=== PATIENT | female | born 1960 | race Caucasian/White ===

== ENCOUNTER 2023-12-05 08:47 | Emergency (ER) | payer OTHER ==
[~2023-12-05] VITALS: Ht 167.6 cm; Wt 73.0 kg
[~2023-12-05 08:47] MED LIST: KEFLEX500 MG PO; LISINOPRIL10 MG PO; NORCO 10-325 T1 EACH PO; NORCO 5-325 TA1 EACH PO; ZOLPIDEM TART12.5 MG PO
[2023-12-05 09:49] LABS: BASOPHILS 0.6 % (0-2); EOSINOPHILS 0.3 % (0-6); HEMATOCRIT 43.1 % (35.0-50.0); HEMOGLOBIN 14.6 g/dL (12.0-18.0); LYMPHOCYTES 17.2 % (24-44); MCH 30.9 (27-36); MCHC 33.8 g/dl (30-36); MCV 91.3 fl (81-99); MONOCYTES 5.4 % (0-12); NEUTROPHILS 76.5 % (39-80); PLATELET COUNT 275 K/uL (140-440); RBC 4.72 M/ul (4.3-5.7); RDW 13.2 (10.5-15.0)
[2023-12-05 10:04] LABS: ALBUMIN 3.8 g/dL (3.4-5.0); ALBUMIN/GLOBULIN RATIO 1.06 (1.1-2.4); ANION GAP 14.4 (7-21); BILIRUBIN, TOTAL 0.5 ng/dL (0.2-1.0); BUN/CREATININE RATIO 15.78 (6.0-28.6); CALCIUM 9.5 mg/dL (8.5-10.1); CREATININE, SERUM 0.76 mg/dL (0.55-1.02); POTASSIUM 3.4 mmol/L (3.5-5.1); PROTEIN, TOTAL 7.4 g/dL (6.4-8.2)
[2023-12-05 10:35] LABS: INR 1.03 (0.80-1.30); PARTIAL THROMBOPLASTIN TIME 27.8 Sec (22.9-41.3); PROTIME 12.8 Sec (11.2-14.2)
[2023-12-05 10:59] LABS: INFLUENZA B NAA NEGATIVE (NEGATIVE); RESPIRATORY SYNCYTIAL VIR NAA NEGATIVE (NEGATIVE)
--- NOTE | 2023-12-06 11:56 | EKG ---
[facility] [address] [facility] [place] [facility] [place], [place] [address] Signed Sinus tachycardia Cannot rule out Anterior infarct , age undetermined Abnormal ECG No previous ECGs available Confirmed by Kleber De La O MD ([id number]) on 12/06/2023 11:56:09 AM Electronically Signed By: KLEBER DE LA O 12/06/23 1156 PATIENT NAME: GANGA CARBALLO Electrocardiogram DATE OF : 60 PHYSICIAN: KLEBER DE LA O REPORT #: [id number] REPORT IS CONFIDENTIAL AND NOT TO BE RELEASED WITHOUT AUTHORIZATION
== END 2023-12-05 13:35 | disposition home or self-care (01) ==
LOC: ED 08:47
PROVIDERS: Emergency Medicine
DX: G45.4 Transient global amnesia (principal); I10 Essential (primary) hypertension; Z79.899 Other long term (current) drug therapy
CPT/HCPCS: 36415; 70450; 70496; 70498; 70551; 71045; 80053; 85025; 85610; 85730; 87502; 93005; 93010; 99285-25; Q9967; U0002

== ENCOUNTER 2025-06-14 08:17 | Emergency (ER) | payer OTHER ==
[~2025-06-14] VITALS: Ht 167.6 cm; Wt 65.0 kg
[2025-06-14] MEDS ORDERED: NITROGLYCERIN 0.4 MG SUBL SL PRN (08:30)
[2025-06-14] MEDS ORDERED: ASPIRIN 81 MG CHEW PO ONE (08:30)
[2025-06-14 08:34] LABS: BASOPHILS 0.7 % (0.1-1.2); EOSINOPHILS 0.7 % (0.7-5.8); LYMPHOCYTES 36.7 % (19.3-51.7); MCH 30.9 PG (25.6-32.2); MCHC 33.3 g/dL (32.2-35.5); MCV 92.7 fL (79.4-94.8); MONOCYTES 9.4 % (4.7-12.5); NEUTROPHILS 52.4 % (34.0-71.1); RBC 4.92 M/uL (3.93-5.22)
[2025-06-14 08:52] LABS: ALT (SGPT) 22 U/L (14-59); AST (SGOT) 16 U/L (15-37); GLOMERULAR FILTRATION RATE,EST 102 mL/min (>60); PROTEIN, TOTAL 8.0 g/dL (6.4-8.2); UREA NITROGEN 11 mg/dL (7-18)
[2025-06-14 11:31] VITALS: BP 125/78
--- NOTE | 2025-06-15 15:13 | EKG ---
[facility] [address] [facility] [place] [address] Signed Sinus rhythm with occasional premature ventricular complexes Cannot rule out Anterior infarct (cited on or before 05-DEC-2023) Abnormal ECG When compared with ECG of 05-DEC-2023 09:47, premature ventricular complexes are now present Questionable change in QRS axis Confirmed by Enrique Whiteside MD ([id number]) on 06/15/2025 3:13:01 PM Electronically Signed By: ENRIQUE WHITESIDE MD 06/15/25 1513 PATIENT NAME: GANGA CARBALLO Electrocardiogram DATE OF : 60 PHYSICIAN: ENRIQUE WHITESIDE MD REPORT #: [id number] REPORT IS CONFIDENTIAL AND NOT TO BE RELEASED WITHOUT AUTHORIZATION
== END 2025-06-14 11:31 | disposition home or self-care (01) ==
LOC: ED 08:17
PROVIDERS: Emergency Medicine
DX: R07.89 Other chest pain (principal); I10 Essential (primary) hypertension; Z79.899 Other long term (current) drug therapy; Z86.73 Personal history of transient ischemic attack (TIA), and cerebral infarction without residual deficits
CPT/HCPCS: 36415; 71045; 80053; 83690; 83735; 84484; 85025; 85379; 93005; 93010; 99285-25; A9270